=== PATIENT | female | born 1995 | race Caucasian/White ===

== ENCOUNTER 2017-02-12 22:58 | Emergency (ER) | payer SELFPAY ==
[~2017-02-12] VITALS: Ht 162.6 cm; Wt 82.0 kg
[~2017-02-12 22:58] MED LIST: AMOX250S3 PO; BCP PO; IBUP600 PO; OXYC1SOL6 PO; PERI8.6T PO
[2017-02-12 23:00] VITALS: BP 119/70; PULSE 78; RESP 16; TEMP 98.8; O2SAT 100
[2017-02-12] MEDS ORDERED: CEPHALEXIN MONOHYDRATE 500 MG CAP PO ONE (23:45)
[2017-02-12] MEDS ORDERED: TETANUS/DIPHTHERIA TOXOID ADULT 0.5 ML VIAL IM ONE (23:45)
--- NOTE | 2017-02-12 23:48 | PD ---
HPI Chief Complaint: Laceration/Skin Injury Time Seen by Provider: 23:38 Travel History International Travel<30 days: No Contact w/Intl Traveler<30days: No Traveled to known affect area: No History of Present Illness HPI This is a 21-year-old female presents for evaluation of an injury to the left index finger. She reports that yesterday she was cutting wood on a wood splinter in the wood "kicked back" and caused a laceration to the left index finger. She was seen at an outside emergency room where she reports the wound was repaired using Dermabond glue. She presents today because she does not like the way that the wound looks. She reports that the wound looks strange and she has had a little bit of oozing of blood from the wound. She is also concerned that she may fracture to her finger but she reports that no x-ray imaging was performed. Her last tetanus vaccination is unknown. Denies any numbness or tingling. No other complaints. PFSH Past Medical History ?: Not LMP: 01/25/17 Social History Alcohol Use: No Tobacco Use: No Allergies-Medications (Allergen,Severity, Reaction): Coded Allergies: No Known Allergies (Verified , 02/12/17) Reported Meds & Prescriptions Reported Meds & Active Scripts Active Keflex (Cephalexin) 500 Mg Cap 500 Mg PO Q8H 7 Days Review of Systems Musculoskeletal: Positive: Pain Skin: Positive Other (positive for laceration, bleeding) Physical Exam Narrative GENERAL: Well-developed well-nourished female in no acute distress SKIN: Warm and dry. There appears to be a repaired flap laceration to the lateral aspect of the left midshaft index finger. It is covered in glue. There is somewhat of a hematoma developed underneath the wound. There is no erythema. Extremities: Skin as noted above. The patient is holding her left index finger in extension in order to prevent wound dehiscence. Flexion and extension examination of the wound has been deferred to prevent wound dehiscence. Data Data Last Documented VS Vital Signs Date Time Temp Pulse Resp B/P Pulse Ox O2 Delivery O2 Flow Rate FiO2 02/12/17 23:00 98.8 78 16 119/70 100 Room Air Orders Finger ([id number]) (02/12/17 ) Tetanus/Diphtheria Tox Adult (Tetanus/Di (02/12/17 23:45) Cephalexin (Keflex) (02/12/17 23:45) [facility] Medical Decision Making Medical Screen Exam Complete: Yes Emergency Medical Condition: Yes Medical Record Reviewed: Yes Differential Diagnosis Wound recheck versus wound dehiscence versus infected wound versus foreign body versus extensor tendon injury versus fracture Narrative Course 21-year-old female presents for recheck after having laceration repair at an outside emergency room yesterday. She has a flap laceration to the lateral aspect of the left index finger that was repaired with Dermabond. The wound is currently intact although there is somewhat of a small hematoma developed underneath the wound. There is a very tiny amount of oozing from the wound. I explained that I cannot repair the wound with sutures at this time as the injury occurred almost 38 hours ago. I explained that this poses a risk of wound dehiscence given the hematoma on the location of the wound. I recommended leaving the glue in place and having her follow up with her primary care physician in 2 weeks. A finger x-ray was performed and is negative for fracture. The patient will be placed on Keflex. I discussed signs and symptoms of infection or returning to the emergency room. She is stable for discharge. Diagnosis Primary Impression: Encounter for wound re-check Additional Instructions: Follow-up with your primary care physician in 2 weeks for recheck. Take antibiotics as prescribed. Avoid picking at the glue. The glue flake off in the next few weeks. Return for any signs of infection as discussed. Med/Other Pt SpecificInfo: Prescription(s) given Scripts Cephalexin (Keflex)500 Mg [id number] Mg PO Q8H 7 Days Ref 0 Prov:Michael Kessler MD 02/13/17 Disposition: 01 DISCHARGE HOME Condition: Stable Erwin Brunson Feb 12, 2017 23:48
--- NOTE | 2017-02-13 00:08 | RADRPT ---
EXAM DATE/TIME: 02/13/2017 00:00 [facility] COMPARISON: No previous studies available for comparison. INDICATIONS : Laceration to left second digit yesterday. Patient cut finger while cutting a plank of wood. MEDICAL HISTORY : None. SURGICAL HISTORY : None. ENCOUNTER: Initial ACUITY: 1 day PAIN SCORE: 8/10 LOCATION: Left 2nd middle phalanx FINDINGS: Examination of the second digit of the left hand demonstrates no evidence of fracture or dislocation. No radiopaque foreign bodies are seen. The soft tissues are markedly swollen without foreign body. CONCLUSION: Unremarkable examination of the left second finger except for marked soft tissue swelling without for eign body or bony injury. Dylan Leon MD on February 13, 2017 at 0:06 Board Certified Radiologist. This report was verified electronically.
[2017-02-13] MEDS ORDERED: CEPH-460 PO (00:45)
== END 2017-02-13 01:16 | disposition home or self-care (01) ==
LOC: NEPK 22:58
DX: S61.211A Laceration without foreign body of left index finger without damage to nail, initial encounter (principal); W26.8XXA Contact with other sharp object(s), not elsewhere classified, initial encounter; W31.2XXA Contact with powered woodworking and forming machines, initial encounter; Y93.89 Activity, other specified; Z23 Encounter for immunization
CPT/HCPCS: 73140; 90471; 90714

== ENCOUNTER 2017-02-17 21:40 | Emergency (ER) | payer SELFPAY ==
[~2017-02-17] VITALS: Ht 162.6 cm; Wt 82.0 kg
[~2017-02-17 21:40] MED LIST changes: -AMOX250S3 PO; -BCP PO; +CEPH-460 PO; -IBUP600 PO; -OXYC1SOL6 PO; -PERI8.6T PO
[2017-02-17 21:43] VITALS: BP 117/74; PULSE 90; RESP 16; TEMP 98.6; O2SAT 99
--- NOTE | 2017-02-17 22:00 | PD ---
Physical Exam Time Seen by Provider: 21:57 Narrative 21yo F present for wound recheck to left index finger. Seen in [place] on Friday morning and they glues the laceration. She canme here Fri night and was givne antibx and tetanus. GKue fell off today and it is still bleeding and wants the wound rechecked. Denies fever, vomiting. Still taking antibx as prescribed. Patient stable. Patient seen in triage. Awaiting bed placement. Data Data Last Documented VS Vital Signs Date Time Temp Pulse Resp B/P Pulse Ox O2 Delivery O2 Flow Rate FiO2 02/17/17 21:43 98.6 90 16 117/74 99 Room Air [facility] Supervised Visit with CINDY: Ellie Waite Feb 17, 2017 22:00
--- NOTE | 2017-02-17 22:14 | PD ---
HPI Chief Complaint: Skin Problem Time Seen by Provider: 22:09 Travel History International Travel<30 days: No Contact w/Intl Traveler<30days: No Traveled to known affect area: No History of Present Illness HPI 21-year-old white female presents emergent department for recheck of her right index finger injury. She was seen here in the ER 2 days ago and at the ER and [place]. She had a laceration to her right index finger which was closed with Dermabond. The patient subsequently had issues and returns today. She states that she has had some drainage under the Dermabond and the glue had lifted off nearly completely. She was concerned that when she clean the finger with peroxide bubbled a lot. She felt that this was signs of infection. She presents for evaluation. She denies any purulent drainage. No active bleeding. No numbness or tingling. No focal weakness. She states that the finger does feel stiff and has difficulty moving it. PFSH Past Medical History Medical History: Denies Significant Hx Diminished Hearing: No Tetanus Vaccination: < 5 Years Past Surgical History Narrative Surgical Tonsils Social History Alcohol Use: No Tobacco Use: Yes Substance Use: No Allergies-Medications (Allergen,Severity, Reaction): Coded Allergies: No Known Allergies (Verified , 02/17/17) Reported Meds & Prescriptions Reported Meds & Active Scripts Active Keflex (Cephalexin) 500 Mg Cap 500 Mg PO Q8H 7 Days Review of Systems Except as stated in HPI: all other systems reviewed are Neg Physical Exam Narrative GENERAL: This is a well-nourished, well-developed patient, in no apparent distress. SKIN: No rashes, ecchymoses or lesions. Warm and dry. Examination the right index finger reveals a flap laceration which appears to be healing. There is a small section which does have a dusky edge and this is shown to the patient. I anticipate no additional wound complications. There is no purulent drainage. No sign of infection. She has good granulation tissue developing. The glue has been completely removed from the finger prior to my exam. Patient does have some decreased range of motion but suspect this will improve over time. HEAD: Atraumatic. Normocephalic. EYES: PERRL, EOMI, no discharge or injection. No scleral icterus. EARS: Clear NOSE: Nasal turbinates appear normal. THROAT: Mucosa pink and moist. Airway patent. NECK: Trachea midline. supple, moves head freely. LUNGS: Clear to auscultation. CV: Regular in rhythm. ABDOMEN: Soft nontender. EXT: No clubbing cyanosis or edema. Data Data Last Documented VS Vital Signs Date Time Temp Pulse Resp B/P Pulse Ox O2 Delivery O2 Flow Rate FiO2 02/17/17 21:43 98.6 90 16 117/74 99 Room Air MDM Medical Decision Making Medical Screen Exam Complete: Yes Emergency Medical Condition: Yes Medical Record Reviewed: Yes Differential Diagnosis MDM: High Differential diagnoses: Abscess, folliculitis, cellulitis, lymphangitis, abrasion, contact dermatitis, wound infection Narrative Course The patient's laceration appears to be healing without complications. The Dermabond has peeled off but there is no signs of any secondary wound infection. The patient's encouraged to continue local wound care with soap and water and apply Neosporin and nonadherent dressing. There is a small area of the wound flap which appears to be dusky and I suspect will necrose but I do not feel that there is any significant complications developing. She is encouraged to develop range of motion by squeezing on a Nerf ball Diagnosis Primary Impression: Encounter for wound re-check Patient Instructions: General Instructions Departure Forms: Tests/Procedures, Work Release Special Instructions: No use of the right hand times one week. Additional Instructions: Rest. Elevation. Tylenol and Advil for pain. Daily wound care with soap, water, Neosporin. Start using a Nerf ball to develop your range of motion. Return to the ER if any problems. Follow-up with a primary care doctor in 1 week. Med/Other Pt SpecificInfo: Wound Care Disposition: 01 DISCHARGE HOME Condition: Stable Carrillo Whyte Feb 17, 2017 22:14
== END 2017-02-17 22:25 | disposition home or self-care (01) ==
LOC: NEPK 21:40
DX: S61.211D Laceration without foreign body of left index finger without damage to nail, subsequent encounter (principal); X58.XXXD Exposure to other specified factors, subsequent encounter
CPT/HCPCS: 99281